=== PATIENT | female | born 1980 | race African-American/Black ===

== ENCOUNTER → 2020-02-24 | Outpatient (CLI) | payer OTHER | LOC: BHSO 10:27 | DX: F31.81 Bipolar II disorder (principal) ==

== ENCOUNTER → 2020-03-10 | Outpatient (CLI) | payer OTHER | LOC: BHSO 14:33 | DX: F41.1 Generalized anxiety disorder (principal) | CPT/HCPCS: G0463 ==

== ENCOUNTER → 2020-06-01 | Outpatient (CLI) | payer OTHER | LOC: BHSO 16:31 | DX: F31.81 Bipolar II disorder (principal) | CPT/HCPCS: G0463 ==